=== PATIENT | male | born 1950 | race Caucasian/White ===

== ENCOUNTER → 2016-09-08 | Outpatient (CLI) | payer MEDICARE ==
[~2016-09-08] VITALS: Ht 177.8 cm; Wt 78.5 kg
[~2016-09-08] MED LIST: LIDOCAINE 2% INJ 100 MG/5 ML SDV (FOR ANES.) As Ordered ONE; NS 1,000 ML IV SCH; PROPOFOL 500 MG/50 ML VIAL As Ordered ONE
--- NOTE | 2016-09-08 12:05 | ROOR ---
Patient Name: Anselmo Guadarrama Procedure Date: 09/08/2016 11:17 AM Date of : 1950 Age: 66 Room: [facility] Gender: Male Note Status: Finalized Procedure: Colonoscopy to Cecum + Hot Snare Polypectomy + Hemoclips Indications: Screening for colorectal malignant neoplasm, This is the patient's first colonoscopy Providers: Brad Daniels MD Referring MD: MINE AMANDA JR, MD Requesting Provider: Medicines: Monitored Anesthesia Care Complications: No immediate complications. Procedure: Pre-Anesthesia Assessment: - The heart rate, respiratory rate, oxygen saturations, blood pressure, adequacy of pulmonary ventilation, and response to care were monitored throughout the procedure. The Colonoscope was introduced through the anus and advanced to the cecum, identified by appendiceal orifice and ileocecal valve. The colonoscopy was performed without difficulty. The patient tolerated the procedure well. The quality of the bowel preparation was excellent. Findings: The perianal and digital rectal examinations were normal. Non-bleeding internal hemorrhoids were found during retroflexion. The hemorrhoids were small and Grade I (internal hemorrhoids that do not prolapse). A large polyp was found at 10 cm proximal to the anus. The polyp was sessile. The polyp was removed with a hot snare. Resection and retrieval were complete. To prevent bleeding after the polypectomy, seven hemostatic clips were successfully placed (MR conditional). Multiple small patchy angioectasias with stigmata of recent bleeding were found in the cecum. The exam was otherwise without abnormality on direct and retroflexion views. Impression: - Non-bleeding internal hemorrhoids. - One large polyp at 10 cm proximal to the anus, removed with a hot snare. Resected and retrieved. Clips (MR conditional) were placed. - Multiple recently bleeding colonic angioectasias. - The examination was otherwise normal on direct and retroflexion views. - The exam was otherwise normal to the cecum. Recommendation: - Patient has a contact number available for emergencies. The signs and symptoms of potential delayed complications were discussed with the patient. Return to normal activities tomorrow. Written discharge instructions were provided to the patient. - High fiber diet. - Discharge patient to home. - Continue present medications. - Await pathology results. - Telephone GI clinic for pathology results in 1 week. - Repeat colonoscopy in 6 months. - Return to referring physician. - The findings and recommendations were discussed with the patient's family. Brad Daniels MD Brad Daniels MD 09/08/2016 12:05:04 PM This report has been signed electronically. Number of Addenda: 0 Note Initiated On: 09/08/2016 11:17 AM Estimated Blood Loss: Estimated blood loss: none.
[2016-09-08 12:32] VITALS: BP 147/86
== END ==
LOC: M OPP 10:42
PROVIDERS: ATTEND Internal Medicine Gastroenterology
DX: Z12.11 Encounter for screening for malignant neoplasm of colon (principal); K64.0 First degree hemorrhoids; D12.6 Benign neoplasm of colon, unspecified; K55.21 Angiodysplasia of colon with hemorrhage

== ENCOUNTER 2017-09-24 08:13 | Day surgery (SDC) | payer MEDICARE ==
[2017-09-24] MEDS: NS 1,000 ML IV (09:15)
[2017-09-24] MEDS ORDERED: LIDOCAINE 2% INJ 100 MG/5 ML SDV (FOR ANES.) As Ordered (09:46)
[2017-09-24] MEDS ORDERED: PROPOFOL 200 MG/20 ML VIAL As Ordered (09:46)
== END 2017-09-24 10:24 | disposition home or self-care (01) ==
LOC: M OPP 08:13
DX: Z09 Encounter for follow-up examination after completed treatment for conditions other than malignant neoplasm (principal); D49.0 Neoplasm of unspecified behavior of digestive system; Z86.010 Personal history of colon polyps; K55.20 Angiodysplasia of colon without hemorrhage; K57.30 Diverticulosis of large intestine without perforation or abscess without bleeding; Z98.890 Other specified postprocedural states; R12 Heartburn; K21.9 Gastro-esophageal reflux disease without esophagitis; Z86.19 Personal history of other infectious and parasitic diseases; J00 Acute nasopharyngitis [common cold]; F17.210 Nicotine dependence, cigarettes, uncomplicated; Z79.899 Other long term (current) drug therapy; Z80.42 Family history of malignant neoplasm of prostate
CPT/HCPCS: 45380

== ENCOUNTER 2018-10-14 07:35 | Day surgery (SDC) | payer MEDICARE ==
[~2018-10-14] VITALS: Ht 177.8 cm; Wt 76.7 kg
[2018-10-14] MEDS ORDERED: NS 1,000 ML IV ONE (08:00)
[2018-10-14] MEDS ORDERED: LIDOCAINE 2% INJ 100 MG/5 ML SDV (FOR ANES.) As Ordered ONE (08:05)
[2018-10-14] MEDS ORDERED: PROPOFOL 200 MG/20 ML VIAL As Ordered ONE (08:05)
--- NOTE | 2018-10-14 09:01 | ROOR ---
Patient Name: Anselmo Guadarrama Procedure Date: 10/14/2018 8:32 AM Date of : 1950 Age: 68 Room: [facility] Gender: Male Note Status: Finalized Procedure: Total Colonoscopy to the Cecum + Biopsies Indications: Colon polyps of uncertain behavior, Follow-up for history of colon polyps of uncertain behavior Providers: Brad Daniels MD Referring MD: MINE AMANDA JR, MD Requesting Provider: Medicines: Monitored Anesthesia Care Complications: No immediate complications. Procedure: Pre-Anesthesia Assessment: - The heart rate, respiratory rate, oxygen saturations, blood pressure, adequacy of pulmonary ventilation, and response to care were monitored throughout the procedure. The Colonoscope was introduced through the anus and advanced to the cecum, identified by appendiceal orifice and ileocecal valve. Findings: The perianal and digital rectal examinations were normal. Non-bleeding internal hemorrhoids were found during retroflexion. The hemorrhoids were small and Grade I (internal hemorrhoids that do not prolapse). A medium scar was found at 10 cm proximal to the anus. There was no evidence of the previous polyp. Biopsies were taken with a cold forceps for histology. Multiple large angioectasias without bleeding were found in the cecum. The exam was otherwise without abnormality on direct and retroflexion views. Impression: - Non-bleeding internal hemorrhoids. - Scar at 10 cm proximal to the anus. Biopsied. - Multiple non-bleeding colonic angioectasias. - The examination was otherwise normal on direct and retroflexion views. - The exam was otherwise normal to the cecum. Recommendation: - Patient has a contact number available for emergencies. The signs and symptoms of potential delayed complications were discussed with the patient. Return to normal activities tomorrow. Written discharge instructions were provided to the patient. - High fiber diet. - Discharge patient to home. - Continue present medications. - Await pathology results. - Telephone GI clinic for pathology results in 1 week. - Repeat colonoscopy for surveillance based on pathology results. - Return to referring physician. - The findings and recommendations were discussed with the patient's family. Brad Daniels MD Brad Daniels MD 10/14/2018 9:01:08 AM This report has been signed electronically. Number of Addenda: 0 Note Initiated On: 10/14/2018 8:32 AM Estimated Blood Loss: Estimated blood loss: none.
[2018-10-14 09:32] VITALS: BP 158/72
== END 2018-10-14 09:34 | disposition home or self-care (01) ==
LOC: M OPP 07:35
PROVIDERS: ATTEND Internal Medicine Gastroenterology
DX: Z09 Encounter for follow-up examination after completed treatment for conditions other than malignant neoplasm (principal); Z86.03 Personal history of neoplasm of uncertain behavior; K64.0 First degree hemorrhoids; K63.89 Other specified diseases of intestine; K55.20 Angiodysplasia of colon without hemorrhage; D37.4 Neoplasm of uncertain behavior of colon; F17.210 Nicotine dependence, cigarettes, uncomplicated; Z80.42 Family history of malignant neoplasm of prostate

== ENCOUNTER → 2020-04-30 | Outpatient (REF) | payer MEDICARE | LOC: M LAB REF 18:49 | PROVIDERS: ATTEND Dermatology | DX: C44.311 Basal cell carcinoma of skin of nose (principal) ==

== ENCOUNTER 2024-04-21 07:53 | Day surgery (SDC) | payer OTHER ==
[~2024-04-21] VITALS: Ht 177.8 cm; Wt 77.1 kg
[~2024-04-21 07:53] MED LIST changes: -LIDOCAINE 2% INJ 100 MG/5 ML SDV (FOR ANES.) As Ordered ONE; +NS 1,000 ML IV ONE; -NS 1,000 ML IV SCH; -PROPOFOL 500 MG/50 ML VIAL As Ordered ONE; +propofoL 200 MG/20 ML VIAL As Ordered ONE
[2024-04-21 09:20] VITALS: TEMP 96.6
[2024-04-21 10:29] VITALS: BP 147/69; O2SAT 99
== END 2024-04-21 10:36 | disposition home or self-care (01) ==
LOC: M OPP 07:53
PROVIDERS: ATTEND Internal Medicine Gastroenterology
DX: Z86.010 Personal history of colon polyps (principal); K55.20 Angiodysplasia of colon without hemorrhage; K64.0 First degree hemorrhoids; K57.30 Diverticulosis of large intestine without perforation or abscess without bleeding; F17.200 Nicotine dependence, unspecified, uncomplicated